=== PATIENT | male | born 1970 | race Two or more races ===

== ENCOUNTER 2017-10-22 21:17 | Emergency (ER) | payer OTHER, MEDICAID ==
[~2017-10-22] VITALS: Ht 170.2 cm; Wt 68.0 kg
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
[2017-10-22 21:39] VITALS: BP 134/96
[2017-10-22 21:40] VITALS: BP 0/0
== END 2017-10-22 21:40 ==
LOC: EDBD 21:17 → EMR 21:20
DX: S20.212A Contusion of left front wall of thorax, initial encounter (principal); Y04.2XXA Assault by strike against or bumped into by another person, initial encounter; Y92.9 Unspecified place or not applicable
CPT/HCPCS: 99283